=== PATIENT | female | born 1965 | race Caucasian/White ===

== ENCOUNTER → 2021-01-09 10:22 | Outpatient (BNVA) | payer BC, SELFPAY | PROVIDERS: Visit Provider Nurse Practitioner | DX: R56.9 Unspecified convulsions (principal); R41.3 Other amnesia; F17.210 Nicotine dependence, cigarettes, uncomplicated | CPT/HCPCS: 99205 ==

== ENCOUNTER → 2021-01-23 14:41 | Outpatient (BNVA) | payer BC, SELFPAY | PROVIDERS: PCP Family Medicine; Visit Provider Specialist | DX: R56.9 Unspecified convulsions (principal); F17.210 Nicotine dependence, cigarettes, uncomplicated | CPT/HCPCS: 95816 ==

== ENCOUNTER → 2021-04-01 10:59 | Outpatient (BNVA) | payer OTHER, SELFPAY | PROVIDERS: PCP Family Medicine; Visit Provider Specialist | DX: G40.309 Generalized idiopathic epilepsy and epileptic syndromes, not intractable, without status epilepticus (principal); M79.7 Fibromyalgia; G43.019 Migraine without aura, intractable, without status migrainosus; G31.84 Mild cognitive impairment of uncertain or unknown etiology | CPT/HCPCS: 96116; 99215 ==

== ENCOUNTER 2021-04-18 15:39 | Outpatient (CLI) | payer BC, SELFPAY ==
--- NOTE | 2021-04-18 15:45 | MR_ITS ---
WS: [id number] MRI HEAD WITHOUT CONTRAST TECHNIQUE: Sagittal T1, T2 axial, T2 axial FLAIR, axial and coronal T1 images, axial susceptibility w eighted imaging, axial diffusion weighted images, and coronal T2 images were obtained. CLINICAL INFORMATION: R56.9 - Unspecified convulsions COMPARISON: None. FINDINGS: No evidence of restricted diffusion to suggest acute ischemia. Ventricular system and basal cisterns are patent. Minimal small vessel changes. Mild parenchymal volume loss. No extra-axial fluid collecti ons. No evidence of mass or mass effect. 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 This measures approximately 9 mm. Normal posterior fossa. Normal vascular flow voids at the skull base. No extra-axial fluid collection s. No evidence of mass or mass effect. Paranasal sinuses are well aerated. Mastoid air cells are well aerated. No hemosiderin on the susceptibility weighted images. Normal optic chiasm and pituitary infundibulum. Moderate asymmetric atrophy right mesotemporal lobe and parahippocampal formation. No significant as sociated gliosis. Normal parenchymal volume left temporal lobe and hippocampal formation. Normal cave rnous sinuses and Meckel's cave. MR/MR head wo con* [id number] IMPRESSION: 1. No evidence of restricted diffusion to suggest acute ischemia. 2. Minimal small vessel changes. Mild parenchymal volume loss. 3. No hemosiderin on susceptibly weighted images. 4. Asymmetric atrophy involving the right mesial temporal lobe and hippocampal formation nonspecific but likely due to prior remote ischemic or developmental insult. Recommend correlation with EEG findings. 5. 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
== END 2021-04-18 15:40 | disposition home or self-care (01) ==
LOC: RADSHAW 15:43
PROVIDERS: PCP Family Medicine; Visit Provider Specialist
DX: R56.9 Unspecified convulsions (principal); G93.89 Other specified disorders of brain
CPT/HCPCS: 70551; 96116; 99215

== ENCOUNTER → 2021-04-22 13:36 | Outpatient (BNVA) | payer BC, SELFPAY | PROVIDERS: PCP Family Medicine; Visit Provider Specialist | DX: G40.309 Generalized idiopathic epilepsy and epileptic syndromes, not intractable, without status epilepticus (principal); G40.909 Epilepsy, unspecified, not intractable, without status epilepticus; M79.7 Fibromyalgia; G43.019 Migraine without aura, intractable, without status migrainosus; G31.84 Mild cognitive impairment of uncertain or unknown etiology; F41.8 Other specified anxiety disorders | CPT/HCPCS: 99214 ==

== ENCOUNTER → 2021-07-02 15:35 | Outpatient (BNVA) | payer BC, SELFPAY | PROVIDERS: PCP Family Medicine; Visit Provider Specialist | DX: G40.309 Generalized idiopathic epilepsy and epileptic syndromes, not intractable, without status epilepticus (principal); M79.7 Fibromyalgia; G43.019 Migraine without aura, intractable, without status migrainosus; G31.84 Mild cognitive impairment of uncertain or unknown etiology; F41.8 Other specified anxiety disorders; E66.3 Overweight | CPT/HCPCS: 99214; 99215 ==

== ENCOUNTER 2022-02-14 08:28 | Outpatient (CLI) | payer BC, SELFPAY ==
--- NOTE | 2022-02-14 08:45 | MR_ITS ---
WS: [id number] MRI HEAD WITHOUT CONTRAST TECHNIQUE: Sagittal T1, T2 axial, T2 axial FLAIR, axial and coronal T1 images, axial susceptibility w eighted imaging, axial diffusion weighted images, and coronal T2 images were obtained. CLINICAL INFORMATION: G43.711 - Chronic migraine without aura, intractable, wit... COMPARISON: April 18, 2021 FINDINGS: No evidence of restricted diffusion to suggest acute ischemia. Ventricular system and basal cisterns are patent. Minimal small vessel changes with mild parenchymal volume loss unchanged from previous. N o extra-axial fluid collections. No evidence of mass or mass effect. 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 This measu res approximately 9 mm. Normal posterior fossa. Normal vascular flow voids at the skull base. Paranas al sinuses are well aerated. Mucosal thickening with partial opacification RIGHT mastoid tip. Normal posterior nasopharynx. Normal parapharyngeal fat. No hemosiderin on the susceptibility weighted image s. Normal optic chiasm and pituitary infundibulum. Normal cavernous sinuses and Meckel's cave. Moderate asymmetric atrophy right mesotemporal lobe and parahippocampal formation unchanged from previous. No significant associated gliosis. Normal parenchymal volume left temporal lobe and hippocampal formatio n. MR/MR head wo con* [id number] IMPRESSION: 1. No significant changes since April 18, 2021 2. Minimal small vessel changes. Mild parenchymal volume loss. 3. No hemosiderin on susceptibly weighted images. 4. Asymmetric atrophy involving the right mesial temporal lobe and hippocampal formation nonspecific but likely due to prior remote ischemic or developmental insult as previously described. Recommend correlation with EEG findings. 5. Small wedge-shaped area of encephalomalacia left dorsal cerebellum likely d ue to prior infarct unchanged.
== END 2022-02-14 08:29 | disposition home or self-care (01) ==
PROVIDERS: PCP Family Medicine; Visit Provider Specialist
DX: G31.84 Mild cognitive impairment of uncertain or unknown etiology (principal); G40.309 Generalized idiopathic epilepsy and epileptic syndromes, not intractable, without status epilepticus; G43.711 Chronic migraine without aura, intractable, with status migrainosus
CPT/HCPCS: 70551

== ENCOUNTER 2024-04-12 14:01 | Outpatient (CLI) | payer BC, SELFPAY | END 2024-04-12 14:02 | disposition home or self-care (01) | LOC: SLEEP 14:03 | PROVIDERS: PCP Family Medicine; Visit Provider Specialist | DX: G47.33 Obstructive sleep apnea (adult) (pediatric) (principal) | CPT/HCPCS: G0399 ==

== ENCOUNTER → 2024-10-24 10:12 | Outpatient (BNVA) | payer BC, SELFPAY | PROVIDERS: PCP Family Medicine; Visit Provider Internal Medicine Rheumatology | DX: Z79.899 Other long term (current) drug therapy (principal); M06.00 Rheumatoid arthritis without rheumatoid factor, unspecified site; R76.8 Other specified abnormal immunological findings in serum; Z11.59 Encounter for screening for other viral diseases; Z11.1 Encounter for screening for respiratory tuberculosis; M25.50 Pain in unspecified joint; M79.7 Fibromyalgia; Z71.85 Encounter for immunization safety counseling | CPT/HCPCS: 36415; 80076; 82565; 85025; 85651; 86140; 86200; 86431; 86480; 86704; 86803; 87340 ==

== ENCOUNTER → 2025-02-01 12:58 | Outpatient (BNVA) | payer BC, SELFPAY | PROVIDERS: PCP Family Medicine; Visit Provider Internal Medicine Rheumatology | DX: Z79.899 Other long term (current) drug therapy (principal) | CPT/HCPCS: 36415; 80076; 82306; 82565; 85025; 85651; 86140 ==

== ENCOUNTER 2025-03-08 15:19 | Outpatient (CLI) | payer BC, SELFPAY ==
[2025-03-08 16:22] LABS: Hematocrit 42.5 % (36-47); Hemoglobin 13.30 g/dL (11.27-16.99); Mean Corpuscular HGB Conc 31.3 g/dL (30-55); Mean Corpuscular Hemoglobin 28.0 pg (27-33); Mean Corpuscular Volume 89.5 fl (85-98); Nucleated Red Blood Cells % 0 %; Platelet Count 337 10^3/cmm (157-399); Red Blood Count 4.75 10^6/uL (3.85-5.65); White Blood Count 5.56 10^3/uL (3.29-11.43)
[2025-03-08 16:50] LABS: Alanine Aminotransferase 14 U/L (0-33); Albumin Level 4.7 g/dL (3.5-5.2); Alkaline Phosphatase 99 U/L (35-105); Aspartate Amino Transferase 16 U/L (0-32); Globulin 2.5 g/dL (1.3-4.6); Total Protein 7.2 g/dL (6.6-8.7)
== END 2025-03-08 15:20 | disposition home or self-care (01) ==
PROVIDERS: PCP Family Medicine; Visit Provider Internal Medicine Rheumatology
DX: Z79.899 Other long term (current) drug therapy (principal)
CPT/HCPCS: 80076; 82565; 85025; 85651; 86140